=== PATIENT | male | born 1945 | race Caucasian/White ===

== ENCOUNTER 2017-09-19 13:45 | Inpatient (IN) | payer OTHER, BC ==
[~2017-09-19] VITALS: Ht 172.7 cm; Wt 55.8 kg
[2017-09-19 14:53] LABS: BASOPHIL (%) 0.1 % (0-1); EOSINOPHIL (%) 0 % (0-5); HEMATOCRIT 50.3 % (38.0-50.0); HEMOGLOBIN 17.9 G/DL (12.5-16.6); IMMATURE GRANULOCYTE (%) 0.7 % (0.0-0.7); LYMPHOCYTE COUNT 0.2 K/uL (1.0-2.8); MCH 30.2 PG (29.0-34.0); MCHC 35.6 G/DL (30.0-36.0); MCV 84.8 FL (86-99); MONOCYTE (%) 4.6 % (3-12); MONOCYTE COUNT 0.9 K/uL (0-0.8); NEUTROPHIL (%) 93.6 % (45-76); NEUTROPHIL COUNT 18.8 K/uL (1.8-6.4); PLATELET COUNT 158 K/uL (156-360); RBC DIS.WIDTH-CV 12.7 % (11.8-14.6); RBC DIS.WIDTH-SD 39.2 % (39-53); RED BLOOD COUNT 5.93 M/uL (4.00-5.50); WHITE BLOOD COUNT 20.1 K/uL (4.1-10.2)
[2017-09-19 15:16] LABS: TROP-I INTERPRETATION NEGATIVE; TROPONIN-I 0.02 ng/mL (0.0-0.30)
[2017-09-19 15:30] LABS: CHLORIDE 99 mEq/L (99-109); POTASSIUM 5.4 mEq/L (3.7-5.4); SODIUM 137 mEq/L (136-147)
[2017-09-19 15:32] LABS: GLUCOSE 213 mg/dL (70-99)
[2017-09-19 15:33] LABS: TOTAL PROTEIN 6.7 g/dL (6.4-8.3)
[2017-09-19 15:34] LABS: TOTAL BILIRUBIN 0.7 mg/dL (0.0-1.0)
[2017-09-19 15:35] LABS: INTER. NORMALIZED RATIO 1.8; SERUM ETHYL ALCOHOL < 10 mg/dL
[2017-09-19 15:36] LABS: ALKALINE PHOSPHATASE 108 IU/L (3-129); CREATININE 10.3 mg/dL (0.6-1.3); GFR ESTIMATE (CALCULATED) 5 mL/min/ (58.99-99999)
[2017-09-19 15:38] LABS: AST (GOT) 13 IU/L (2-34); PTT 32.9 SEC (25-37)
[2017-09-19 15:39] LABS: ALT (GPT) 13 IU/L (3-49); LIPASE 47 U/L (1.0-51.0)
[2017-09-19 15:51] LABS: UREA NITROGEN (BUN) 203 mg/dL (9-23)
[2017-09-19 18:30] LABS: APPEARANCE CLEAR ((CLEAR)); BILIRUBIN NEGATIVE; BLOOD SMALL; COLOR YELLOW ((YELLOW)); GLUCOSE (STRIP) NEGATIVE; KETONES NEGATIVE; LEUKOCYTES TRACE; NITRITE NEGATIVE; PROTEIN (STRIP) NEGATIVE; SPECIFIC GRAVITY 1.013 (1.000-1.030); UROBILINOGEN 0.2 MG/DL (0.2-1.0)
[2017-09-19 18:49] LABS: BACTERIA NONE SEEN /HPF; EPITHELIAL CELLS NONE SEEN /HPF; MUCUS NONE SEEN /LPF; RED BLOOD CELLS 0-5 /HPF (0-5); UCUL ADDED? NO; WHITE BLOOD CELLS 0-5 /HPF (0-5)
[2017-09-19] MEDS ORDERED: LO-DOSE ASPIRIN81 M1 PO (19:39)
[2017-09-19 22:12] VITALS: BP 147/77
[2017-09-20 04:53] VITALS: BP 139/76
[2017-09-20 06:19] LABS: HEMATOCRIT 42.8 % (38.0-50.0); MCHC 34.1 G/DL (30.0-36.0); MCV 84.9 FL (86-99); PLATELET COUNT 119 K/uL (156-360); RBC DIS.WIDTH-CV 12.6 % (11.8-14.6); RBC DIS.WIDTH-SD 38.8 % (39-53); RED BLOOD COUNT 5.04 M/uL (4.00-5.50); WHITE BLOOD COUNT 17.6 K/uL (4.1-10.2)
[2017-09-20 06:20] LABS: HEMOGLOBIN 14.6 G/DL (12.5-16.6)
[2017-09-20 07:27] VITALS: BP 131/68
[2017-09-20 08:12] LABS: FOLIC ACID (FOLATE) 5.3 NG/ML (5.0-22.0)
[2017-09-20 08:20] LABS: THYROTROPIN (TSH) 3.7 MIU/L (0.4-5.5)
[2017-09-20 08:23] LABS: CHLORIDE 112 MEQ/L (99-109); GLUCOSE 142 mg/dL (70-99)
[2017-09-20 08:24] LABS: CREATININE 2.6 MG/DL (0.6-1.3); GFR ESTIMATE (CALCULATED) 26 mL/min/ (58.99-99999); POTASSIUM 3.3 MEQ/L (3.7-5.4); SODIUM 147 MEQ/L (136-147); UREA NITROGEN (BUN) 102 mg/dL (9-23)
[2017-09-20 15:24] VITALS: BP 133/58
[2017-09-21] VITALS: BP 116/74
[2017-09-21 07:11] LABS: BASOPHIL (%) 0.1 % (0-1); EOSINOPHIL (%) 2.7 % (0-5); EOSINOPHIL COUNT 0.3 K/uL (0-0.3); HEMATOCRIT 36.7 % (38.0-50.0); IMMATURE GRANULOCYTE (%) 1.1 % (0.0-0.7); LYMPHOCYTE (%) 8.7 % (15-42); LYMPHOCYTE COUNT 0.9 K/uL (1.0-2.8); MCH 29.5 PG (29.0-34.0); MCHC 33.2 G/DL (30.0-36.0); MCV 88.6 FL (86-99); MONOCYTE (%) 13.6 % (3-12); MONOCYTE COUNT 1.4 K/uL (0-0.8); NEUTROPHIL (%) 73.8 % (45-76); NEUTROPHIL COUNT 7.3 K/uL (1.8-6.4); PLATELET COUNT 111 K/uL (156-360); RBC DIS.WIDTH-CV 13.1 % (11.8-14.6); RBC DIS.WIDTH-SD 42.2 % (39-53); RED BLOOD COUNT 4.14 M/uL (4.00-5.50); WHITE BLOOD COUNT 9.9 K/uL (4.1-10.2)
[2017-09-21 07:21] LABS: HEMOGLOBIN 12.2 G/DL (12.5-16.6)
[2017-09-21 07:37] LABS: CHLORIDE 119 MEQ/L (99-109); GLUCOSE 115 mg/dL (70-99); PHOSPHORUS 1.4 mg/dL (2.5-4.9); SODIUM 150 MEQ/L (136-147)
[2017-09-21 07:43] VITALS: BP 124/65
[2017-09-21 07:49] LABS: CREATININE 0.8 MG/DL (0.6-1.3); GFR ESTIMATE (CALCULATED) > 59 mL/min/ (58.99-99999); POTASSIUM 4.1 MEQ/L (3.7-5.4); UREA NITROGEN (BUN) 30 mg/dL (9-23)
[2017-09-21 15:28] LABS: CHLORIDE 113 MEQ/L (99-109); CREATININE 0.8 MG/DL (0.6-1.3); GFR ESTIMATE (CALCULATED) > 59 mL/min/ (58.99-99999); POTASSIUM 4.3 MEQ/L (3.7-5.4); SODIUM 145 MEQ/L (136-147); UREA NITROGEN (BUN) 23 mg/dL (9-23)
[2017-09-21 15:34] LABS: GLUCOSE 173 mg/dL (70-99)
[2017-09-21 16:10] VITALS: BP 145/66
[2017-09-22 00:33] VITALS: BP 140/67
[2017-09-22 01:08] LABS: STOOL OCCULT BLD 1ST SPECIMEN NEGATIVE
[2017-09-22 07:06] LABS: BASOPHIL (%) 0.2 % (0-1); EOSINOPHIL (%) 6.1 % (0-5); EOSINOPHIL COUNT 0.7 K/uL (0-0.3); HEMATOCRIT 36.5 % (38.0-50.0); HEMOGLOBIN 12.2 G/DL (12.5-16.6); IMMATURE GRANULOCYTE (%) 0.8 % (0.0-0.7); LYMPHOCYTE (%) 16.1 % (15-42); LYMPHOCYTE COUNT 1.7 K/uL (1.0-2.8); MCHC 33.4 G/DL (30.0-36.0); MCV 89.9 FL (86-99); MONOCYTE (%) 10.3 % (3-12); MONOCYTE COUNT 1.1 K/uL (0-0.8); NEUTROPHIL (%) 66.5 % (45-76); NEUTROPHIL COUNT 7.1 K/uL (1.8-6.4); PLATELET COUNT 122 K/uL (156-360); RBC DIS.WIDTH-CV 13.1 % (11.8-14.6); RED BLOOD COUNT 4.06 M/uL (4.00-5.50); WHITE BLOOD COUNT 10.7 K/uL (4.1-10.2)
[2017-09-22 07:30] LABS: CHLORIDE 109 MEQ/L (99-109); CREATININE 0.6 MG/DL (0.6-1.3); GFR ESTIMATE (CALCULATED) > 59 mL/min/ (58.99-99999); GLUCOSE 122 mg/dL (70-99); MAGNESIUM 1.7 mg/dl (1.3-2.7); PHOSPHORUS 1.5 mg/dL (2.5-4.9); POTASSIUM 4.1 MEQ/L (3.7-5.4); SODIUM 141 MEQ/L (136-147); UREA NITROGEN (BUN) 16 mg/dL (9-23)
[2017-09-22 07:50] VITALS: BP 129/70
[2017-09-22] MEDS ORDERED: THERAGRAN1 TABLET PO (09:13)
[2017-09-22] MEDS ORDERED: THIAMINE HCL100 MG PO ×2 (09:13→11:11)
[2017-09-22] MEDS ORDERED: PEPCID20 MG PO (09:13)
[2017-09-22] MEDS ORDERED: FOLIC ACID1 MG PO (09:13)
[2017-09-22] MEDS ORDERED: NEUTRA-PHOS,1 PACKET PO (09:13)
[2017-09-22] MEDS ORDERED: TAMSULOSIN HCL0.4 MG PO (09:13)
[2017-09-22 15:35] VITALS: BP 136/69
== END 2017-09-22 18:37 | DRG 682 ==
LOC: EME 13:45 → 5SOUTH 20:17 → EDOF 20:17 → ENRESERV 20:29 → 5SOUTH 21:38
PROVIDERS: Emergency Medicine; Hospitalist; Internal Medicine Gastroenterology; Internal Medicine Nephrology; Physician Assistant
DX: N17.9 Acute kidney failure, unspecified (principal); G93.41 Metabolic encephalopathy; N13.2 Hydronephrosis with renal and ureteral calculous obstruction; N13.8 Other obstructive and reflux uropathy; E86.0 Dehydration; E87.2 Acidosis; E87.0 Hyperosmolality and hypernatremia; F10.27 Alcohol dependence with alcohol-induced persisting dementia; K92.0 Hematemesis; E87.6 Hypokalemia; R79.1 Abnormal coagulation profile; R33.8 Other retention of urine; F17.200 Nicotine dependence, unspecified, uncomplicated; F10.239 Alcohol dependence with withdrawal, unspecified; Y90.0 Blood alcohol level of less than 20 mg/100 ml; Z79.82 Long term (current) use of aspirin
CPT/HCPCS: 70450; 71250; 72125; 74176; 76705; 80048; 80048 91; 80053; 81003; 82272; 82306; 82607; 82746; 82948; 83036; 83605; 83690; 83735; 84100; 84443; 84484; 85025; 85027; 85610; 85730; 87040; 87086; 93005; 99281; 99285; C9113; G0480; J2543; J2765; J3411; J3475; J7030; J7050; J7070; S0028

== ENCOUNTER 2018-01-13 17:16 | Observation (INO) | payer OTHER, BC ==
[~2018-01-13] VITALS: Ht 175.3 cm; Wt 79.5 kg
[~2018-01-13 17:16] MED LIST: FOLIC ACID1 MG PO; LO-DOSE ASPIRIN81 M1 PO; NEUTRA-PHOS,1 PACKET PO; PEPCID20 MG PO; TAMSULOSIN HCL0.4 MG PO; THERAGRAN1 TABLET PO; THIAMINE HCL100 MG PO
[2018-01-13 20:17] LABS: HEMATOCRIT 45.9 % (38.0-50.0); HEMOGLOBIN 15.8 G/DL (12.5-16.6); MCH 30.2 PG (29.0-34.0); MCHC 34.4 G/DL (30.0-36.0); MCV 87.8 FL (86-99); PLATELET COUNT 286 K/uL (156-360); RBC DIS.WIDTH-SD 41.5 % (39-53); RED BLOOD COUNT 5.23 M/uL (4.00-5.50); WHITE BLOOD COUNT 10.2 K/uL (4.1-10.2)
[2018-01-13 20:49] LABS: ALBUMIN 3.9 g/dL (3.2-4.8); CHLORIDE 99 mEq/L (99-109); POTASSIUM 3.6 mEq/L (3.7-5.4); SODIUM 136 mEq/L (136-147)
[2018-01-13 20:51] LABS: GLUCOSE 111 mg/dL (70-99); TOTAL PROTEIN 7.7 g/dL (6.4-8.3)
[2018-01-13 20:53] LABS: TOTAL BILIRUBIN 0.4 mg/dL (0.0-1.0)
[2018-01-13 20:55] LABS: ALKALINE PHOSPHATASE 250 IU/L (3-129); CREATININE 1.5 mg/dL (0.6-1.3); GFR ESTIMATE (CALCULATED) 49 mL/min/ (58.99-99999)
[2018-01-13 20:56] LABS: UREA NITROGEN (BUN) 40 mg/dL (9-23)
[2018-01-13 20:57] LABS: AST (GOT) 18 IU/L (2-34)
[2018-01-13 20:58] LABS: ALT (GPT) 13 IU/L (3-49)
[2018-01-13 21:26] LABS: APPEARANCE CLOUDY ((CLEAR)); BILIRUBIN NEGATIVE; BLOOD SMALL; COLOR YELLOW ((YELLOW)); GLUCOSE (STRIP) NEGATIVE; KETONES NEGATIVE; LEUKOCYTES LARGE; NITRITE NEGATIVE; PROTEIN (STRIP) 30; SPECIFIC GRAVITY 1.016 (1.000-1.030); UROBILINOGEN 0.2 MG/DL (0.2-1.0)
[2018-01-13 21:44] LABS: BACTERIA 4+ /HPF; EPITHELIAL CELLS NONE SEEN /HPF; MUCUS NONE SEEN /LPF; RED BLOOD CELLS 0-5 /HPF (0-5); WHITE BLOOD CELLS TNTC /HPF (0-5)
[2018-01-13] MEDS ORDERED: TAB-A-VITE1 EACH PO (22:49)
[2018-01-13] MEDS ORDERED: VITAMIN B-1100 MG PO (22:50)
[2018-01-13] MEDS ORDERED: PROSTATE MEDICATION (22:51)
[2018-01-13] MEDS ORDERED: DONEPEZIL HCL5 MG PO (22:51)
[2018-01-14 00:30] VITALS: BP 138/70
[2018-01-14 04:22] VITALS: BP 117/55
[2018-01-14 05:54] LABS: CHLORIDE 103 MEQ/L (99-109); CREATININE 1.2 MG/DL (0.6-1.3); GFR ESTIMATE (CALCULATED) > 59 mL/min/ (58.99-99999); GLUCOSE 91 mg/dL (70-99); POTASSIUM 3.9 MEQ/L (3.7-5.4); SODIUM 139 MEQ/L (136-147); UREA NITROGEN (BUN) 36 mg/dL (9-23)
[2018-01-14 07:38] VITALS: BP 128/76
[2018-01-14] MEDS ORDERED: TRAMADOL HCL50 MG PO (09:48)
[2018-01-14] MEDS ORDERED: CIPRO500 MG PO (09:50)
[2018-01-14] MEDS ORDERED: METFORMIN HCL500 MG PO (09:51)
[2018-01-14] MEDS ORDERED: ATORVASTATIN CA20 MG PO (09:51)
== END 2018-01-14 11:55 | disposition home or self-care (01) ==
LOC: EME 17:16 → EDOF 23:18 → 4SOUTH 23:18 → EDOF 23:18 → ENRESERV 23:18 → 4SOUTH 01-14 00:24
PROVIDERS: Emergency Medicine; Physician Assistant Medical
DX: N17.9 Acute kidney failure, unspecified (principal); E86.0 Dehydration; E87.6 Hypokalemia; N13.9 Obstructive and reflux uropathy, unspecified; N39.0 Urinary tract infection, site not specified; E11.9 Type 2 diabetes mellitus without complications; F03.90 Unspecified dementia, unspecified severity, without behavioral disturbance, psychotic disturbance, mood disturbance, and anxiety; M85.80 Other specified disorders of bone density and structure, unspecified site; F10.21 Alcohol dependence, in remission; Z87.442 Personal history of urinary calculi; F17.200 Nicotine dependence, unspecified, uncomplicated; Z81.1 Family history of alcohol abuse and dependence; N40.0 Benign prostatic hyperplasia without lower urinary tract symptoms; M54.5 Low back pain
CPT/HCPCS: 74176; 80048; 80053; 81003; 83605; 85027; 87077; 87086; 87186; 99281; 99285; G0378; G8978 GP CI; G8979 GP CH; G8980 GP CI; G8991 GP CI; J0692; J0696; J1650; J3480; J7030